=== PATIENT | male | born 1990 | race Hispanic/Latino ===

== ENCOUNTER 2018-06-11 07:30 | Emergency (ER) | payer SELFPAY ==
[2018-06-11] MEDS ORDERED: ONDANSETRON 4 MG/2 ML VIAL ONE (08:08)
[2018-06-11] MEDS ORDERED: MAGNE/ALUM HYDROXD 30 ML UCUP ONE (08:08)
[2018-06-11] MEDS ORDERED: FAMOTIDINE 20 MG/2 ML VIAL IV ONE (08:08)
[2018-06-11] MEDS ORDERED: LIDOCAINE VISCOUS 2% SOLN 15 ML UDC ONE (08:08)
[2018-06-11] MEDS ORDERED: NA CHLORIDE 0.9% 1,000 ML ONE (08:09)
[2018-06-11 08:27] LABS: Absolute Lymphocytes (CBC) 1.5 K/uL (0.7-4.9); Absolute Monocytes 0.7 K/uL (0.1-1.3); Basophils % 0.4 % (0-1.3); Eosinophils % 0.1 % (0-4.4); Hematocrit 42.1 % (39.6-49.0); Lymphocytes % 9.7 % (15.3-44.8); MPV 8.4 fL (7.6-11.3); Monocytes % 4.6 % (3.3-12.3); RBC Red Blood Cell Count 4.74 M/uL (4.33-5.43)
[2018-06-11 08:45] LABS: ALT/SGPT 30 U/L (12-78); AST/SGOT 13 U/L (15-37); Albumin 3.8 g/dL (3.4-5.0); Alkaline Phosphatase 70 U/L (45-117); BUN Blood Urea Nitrogen 13 mg/dL (7-18); Bicarbonate 28 mmol/L (21-32); Bilirubin Direct 0.1 mg/dL (0-0.2); Bilirubin Total 0.4 mg/dL (0.2-1.0); Glucose Level 261 mg/dL (74-106); Lipase 121 U/L (73-393); Potassium 3.9 mmol/L (3.5-5.1); Protein, Total 7.1 g/dL (6.4-8.2); Sodium Level 139 mmol/L (136-145)
[2018-06-11 09:16] LABS: Blood Morphology Comment NOT SEEN (NOT SEEN); Platelet Estimate ADEQ; Urine White Blood Cell Casts OK
--- NOTE | 2018-06-11 09:25 | RAD REPORT ---
EXAM DESCRIPTION: CTAbdomen Pelvis W Contrast - 06/11/2018 9:10 am CLINICAL HISTORY: Abdominal pain. iv contrast only;Abd pain COMPARISON: Abdomen Pelvis W Contrast dated 03/12/2017 TECHNIQUE: Biphasic CT imaging of the abdomen and pelvis was performed with 100 ml non-ionic IV cont rast. All CT scans are performed using dose optimization technique as appropriate and may include automated exposure control or mA/KV adjustment according to patient size. FINDINGS: The lung bases are clear. The liver demonstrates mild fatty infiltration. The spleen, pancreas, adrenal glands and kidneys are within normal limits. No bowel obstruction, free air, free fluid or abscess. The appendix is normal. No evidence of signi ficant lymphadenopathy. No suspicious bony findings. IMPRESSION: No acute intra-abdominal or pelvic finding. Mild fatty liver.
--- NOTE | 2018-06-11 09:30 | EDPHYS ---
Physician Documentation [facility] Name: Ron Felix Age: 27 yrs Sex: Male : 1990 Arrival Date: 06/11/2018 Time: 07:32 Bed 5 Private MD: None, None ED Physician Gilbert Tran HPI: 06/11 08:20 This 27 yrs old Male presents to ER via Ambulatory with complaints of Vomiting.kb 08:20 The patient presents to the emergency department with nausea, vomiting, abdominal pain. kb Onset: The symptoms/episode began/occurred this morning, at 03:00. Possible causes: unknown. The symptoms are aggravated by nothing. The symptoms are alleviated by nothing. Associated signs and symptoms: Pertinent positives: abdominal pain, nausea, vomiting. Severity of symptoms: At their worst the symptoms were moderate in the emergency department the symptoms are unchanged. The patient has experienced a previous episode, approximately 2 months ago. The patient has not recently seen a physician. 08:21 Pt reports he started having left sided abd pain and vomiting at 0300. States the pain kb radiates up esophagus and describes it as burning. Has had this before and told it was an ulcer. Has been on Protonix and zofran. Historical: - Allergies: 07:35 No Known Allergies; aa5 - Home Meds: 07:35 metformin 500 mg Oral Tb24 2 times per day [Active]; aa5 - PMHx: 07:35 PUD; Ulcers; Diabetes - NIDDM; aa5 - PSHx: 07:35 None; aa5 - Immunization history:: Flu vaccine is up to date. - Social history:: Smoking status: Patient/guardian denies using tobacco. - Ebola Screening: : No symptoms or risks identified at this time. ROS: 08:20 Constitutional: Negative for fever, chills, and weight loss, Cardiovascular: Negative kb for chest pain, palpitations, and edema, Respiratory: Negative for shortness of breath, cough, wheezing, and pleuritic chest pain, Back: Negative for injury and pain, : Negative for injury, bleeding, discharge, and swelling, MS/Extremity: Negative for injury and deformity, Skin: Negative for injury, rash, and discoloration, Neuro: Negative for headache, weakness, numbness, tingling, and seizure. 08:20 Abdomen/GI: Positive for abdominal pain, nausea and vomiting, Negative for diarrhea, constipation, abdominal cramps, abdominal distension, anorexia. Exam: 08:18 Constitutional: This is a well developed, well nourished patient who is awake, alert, kb and in no acute distress. Head/Face: Normocephalic, atraumatic. Chest/axilla: Normal chest wall appearance and motion. Nontender with no deformity. No lesions are appreciated. Cardiovascular: Regular rate and rhythm with a normal S1 and S2. No gallops, murmurs, or rubs. Normal PMI, no JVD. No pulse deficits. Respiratory: Lungs have equal breath sounds bilaterally, clear to auscultation and percussion. No rales, rhonchi or wheezes noted. No increased work of breathing, no retractions or nasal flaring. Skin: Warm, dry with normal turgor. Normal color with no rashes, no lesions, and no evidence of cellulitis. MS/ Extremity: Pulses equal, no cyanosis. Neurovascular intact. Full, normal range of motion. Neuro: Awake and alert, GCS 15, oriented to person, place, time, and situation. Cranial nerves II-XII grossly intact. Motor strength 5/5 in all extremities. Sensory grossly intact. Cerebellar exam normal. Normal gait. 08:18 Abdomen/GI: Inspection: abdomen appears normal, Bowel sounds: normal, in all quadrants, Palpation: soft, in all quadrants, mild abdominal tenderness, in the left upper quadrant and left lower quadrant. Vital Signs: 07:36 BP 147 / 80; Pulse 96; Resp 16 S; Temp 97.6(TE); Pulse Ox 100% on R/A; Weight 86.18 kg aa5 (R); Height 5 ft. 10 in. (177.80 cm) (R); Pain 9/10; 08:37 BP 130 / 83; Pulse 82; Resp 17; Pulse Ox 100% on R/A; tw2 09:41 BP 130 / 89; Pulse 84; Resp 17; Pulse Ox 99% on R/A; Pain 6/10; tw2 07:36 Body Mass Index 27.26 (86.18 kg, 177.80 cm) aa5 MDM: 07:37 Patient medically screened. kb 08:18 Data reviewed: vital signs, nurses notes. Data interpreted: Pulse oximetry: on room air kb is 100 %. Interpretation: normal. 09:29 Counseling: I had a detailed discussion with the patient and/or guardian regarding: the kb historical points, exam findings, and any diagnostic results supporting the discharge/admit diagnosis, lab results, radiology results, the need for outpatient follow up, a family practitioner, to return to the emergency department if symptoms worsen or persist or if there are any questions or concerns that arise at home. 06/11 07:38 Order name: Basic Metabolic Panel; Complete Time: 08:50 kb 06/11 07:38 Order name: CBC with Diff; Complete Time: 09:19 kb 06/11 07:38 Order name: Hepatic Function; Complete Time: 08:50 kb 06/11 07:38 Order name: Lipase; Complete Time: 08:50 kb 06/11 08:31 Order name: CBC Smear Scan; Complete Time: 09:19 EDMS 06/11 08:51 Order name: CT Abd/Pelvis - W/Contrast; Complete Time: 09:29 kb 06/11 07:38 Order name: IV Saline Lock; Complete Time: 07:54 kb 06/11 07:38 Order name: Labs collected and sent; Complete Time: 07:54 kb 06/11 08:06 Order name: Labs - recollect needed; Complete Time: 08:17 bd Administered Medications: 07:58 Drug: Zofran 4 mg Route: IVP; Site: right antecubital; tw2 09:40 Follow up: Response: No adverse reaction tw2 08:00 Drug: Pepcid 20 mg Route: IVP; Site: right antecubital; tw2 09:40 Follow up: Response: No adverse reaction tw2 08:04 Drug: NS 0.9% 1000 ml Route: IV; Rate: 1000 ml; Site: right antecubital; tw2 09:41 Follow up: Response: No adverse reaction; IV Status: Completed infusion; IV Intake: tw2 1000ml 08:04 Drug: GI Cocktail without - (Maalox Suspension 30 ml, Lidocaine Liquid 2 % 15 tw2 ml) Route: PO; 09:40 Follow up: Response: No adverse reaction tw2 Disposition: 06/11/18 09:29 Discharged to Home. Impression: Upper abdominal pain, unspecified. - Condition is Stable. - Discharge Instructions: Abdominal Pain, Adult, [id number]. - Prescriptions for Bentyl 20 mg Oral Tablet - take 1 tablet by ORAL route every 6 hours As needed; 20 tablet. - Medication Reconciliation Form, Thank You Letter, Antibiotic Education, Prescription Opioid Use, Work release form form. - Follow up: Emergency Department; When: As needed; Reason: Worsening of condition. Follow up: Private Physician; When: 2 - 3 days; Reason: Recheck today's complaints, Continuance of care, Re-evaluation by your physician. Addendum: 06/12/2018 12:06 Co-signature as Attending Physician, Gilbert Tran MD I agree with the assessment and c valencia plan of care. Signatures: Dispatcher [employer] EDMS Monica Mckeon, ACADEMIC SUCCESS COORDINATOR-C ACADEMIC SUCCESS COORDINATOR-Ckb Alexia Ricardo Corey, MD MD cha Calderon, Audri, RN RN aa5 Stella George RN RN tw2 Corrections: (The following items were deleted from the chart) 06/11 09:42 09:29 06/11/2018 09:29 Discharged to Home. Impression: Upper abdominal pain, tw2 unspecified. Condition is Stable. Forms are Medication Reconciliation Form, Thank You Letter, Antibiotic Education, Prescription Opioid Use. Follow up: Emergency Department; When: As needed; Reason: Worsening of condition. Follow up: Private Physician; When: 2 - 3 days; Reason: Recheck today's complaints, Continuance of care, Re-evaluation by your physician. kb
--- NOTE | 2018-06-11 09:30 | ER ---
Nurse's Notes [facility] Name: Ron Felix Age: 27 yrs Sex: Male : 1990 Arrival Date: 06/11/2018 Time: 07:32 Bed 5 Private MD: None, None Diagnosis: Upper abdominal pain, unspecified Presentation: 06/11 07:34 Presenting complaint: Patient states: nausea and vomiting that began at 0300. Pt c/o aa5 abd pain described as burning. Transition of care: patient was not received from another setting of care. Onset of symptoms was May 2018. Risk Assessment: Do you want to hurt yourself or someone else? Patient reports no desire to harm self or others. Initial Sepsis Screen: Does the patient meet any 2 criteria? No. Patient's initial sepsis screen is negative. Does the patient have a suspected source of infection? No. Patient's initial sepsis screen is negative. Care prior to arrival: None. 07:34 Method Of Arrival: Ambulatory aa5 07:34 Acuity: JOSE 3 aa5 Triage Assessment: 07:37 General: Appears in no apparent distress. Behavior is calm, cooperative, appropriate tw2 for age. Pain: Complains of pain in abdomen. GI: Reports lower abdominal pain, upper abdominal pain, vomiting. Historical: - Allergies: 07:35 No Known Allergies; aa5 - Home Meds: 07:35 metformin 500 mg Oral Tb24 2 times per day [Active]; aa5 - PMHx: 07:35 PUD; Ulcers; Diabetes - NIDDM; aa5 - PSHx: 07:35 None; aa5 - Immunization history:: Flu vaccine is up to date. - Social history:: Smoking status: Patient/guardian denies using tobacco. - Ebola Screening: : No symptoms or risks identified at this time. Screenin:37 Abuse screen: Denies threats or abuse. Nutritional screening: No deficits noted. tw2 Tuberculosis screening: No symptoms or risk factors identified. Fall Risk None identified. Assessment: 07:44 General: Appears in no apparent distress. Behavior is calm, cooperative, appropriate tw2 for age. Pain: Complains of pain in abdomen. Neuro: Level of Consciousness is awake, alert, obeys commands, Oriented to person, place, time, situation. Cardiovascular: Heart tones S1 S2 Patient's skin is warm and dry. Respiratory: Airway is patent Respiratory effort is even, unlabored, Respiratory pattern is regular, symmetrical, Breath sounds are clear bilaterally. GI: Abdomen is flat, non-distended, Bowel sounds present X 4 quads. Abd is soft X 4 quads Reports vomiting, "then after i vomit it hopper", "i ate something i wasn't supposed to". : No signs and/or symptoms were reported regarding the genitourinary system. EENT: No signs and/or symptoms were reported regarding the EENT system. Derm: No signs and/or symptoms reported regarding the dermatologic system. Musculoskeletal: Circulation, motion, and sensation intact. Range of motion: intact in all extremities. 08:38 Reassessment: Patient appears in no apparent distress at this time. Patient and/or tw2 family updated on plan of care and expected duration. Pain level reassessed. Patient is alert, oriented x 3, equal unlabored respirations, skin warm/dry/pink. Patient states feeling better. 09:41 Reassessment: Patient appears in no apparent distress at this time. Patient and/or tw2 family updated on plan of care and expected duration. Pain level reassessed. Patient is alert, oriented x 3, equal unlabored respirations, skin warm/dry/pink. Patient states feeling better. Patient states symptoms have improved. Vital Signs: 07:36 BP 147 / 80; Pulse 96; Resp 16 S; Temp 97.6(TE); Pulse Ox 100% on R/A; Weight 86.18 kg aa5 (R); Height 5 ft. 10 in. (177.80 cm) (R); Pain 9/10; 08:37 BP 130 / 83; Pulse 82; Resp 17; Pulse Ox 100% on R/A; tw2 09:41 BP 130 / 89; Pulse 84; Resp 17; Pulse Ox 99% on R/A; Pain 6/10; tw2 07:36 Body Mass Index 27.26 (86.18 kg, 177.80 cm) aa5 ED Course: 07:32 Patient arrived in ED. as 07:32 None, None is Private Physician. as 07:34 Arm band placed on. aa5 07:35 Triage completed. aa5 07:36 Monica Mckeon FNP-C [facility] kb 07:36 Gilbert Tran MD is Attending Physician. kb 07:36 Stella George, RN is Primary Nurse. tw2 07:37 Bed in low position. Call light in reach. Pulse ox on. NIBP on. tw2 07:53 Initial lab(s) drawn, by me, sent to lab. Inserted saline lock: 20 gauge in right kj1 antecubital area, using aseptic technique. 09:02 CT completed. Patient tolerated procedure well. Patient moved to CT via wheelchair. Patient moved back from CT. 09:10 CT Abd/Pelvis - W/Contrast In Process Unspecified. EDMS 09:41 No provider procedures requiring assistance completed. IV discontinued, intact, tw2 bleeding controlled, No redness/swelling at site. Pressure dressing applied. Administered Medications: 07:58 Drug: Zofran 4 mg Route: IVP; Site: right antecubital; tw2 09:40 Follow up: Response: No adverse reaction tw2 08:00 Drug: Pepcid 20 mg Route: IVP; Site: right antecubital; tw2 09:40 Follow up: Response: No adverse reaction tw2 08:04 Drug: NS 0.9% 1000 ml Route: IV; Rate: 1000 ml; Site: right antecubital; tw2 09:41 Follow up: Response: No adverse reaction; IV Status: Completed infusion; IV Intake: tw2 1000ml 08:04 Drug: GI Cocktail without - (Maalox Suspension 30 ml, Lidocaine Liquid 2 % 15 tw2 ml) Route: PO; 09:40 Follow up: Response: No adverse reaction tw2 Intake: 09:41 IV: 1000ml; Total: 1000ml. tw2 Outcome: 09:29 Discharge ordered by . kb 09:41 Discharged to home ambulatory. tw2 09:41 Condition: stable 09:41 Discharge instructions given to patient, Instructed on discharge instructions, follow up and referral plans. medication usage, Demonstrated understanding of instructions, follow-up care, medications, Prescriptions given X 1. 09:42 Patient left the ED. tw2 Signatures: Dispatcher [employer] EDMS Monica Mckeon, LUDY HUFF-Radha Medrano Amelia as Calderon, Audri, RN RN aa5 Stella George RN RN tw2 Nelsy Mckeon kj1
[2018-06-11 09:49] VITALS: TEMP 97.6
[2018-06-11 09:51] VITALS: BP 130/89; O2SAT 99
== END 2018-06-11 09:42 | disposition home or self-care (01) ==
LOC: ER 07:30
DX: R10.10 Upper abdominal pain, unspecified (principal); R11.2 Nausea with vomiting, unspecified; E11.9 Type 2 diabetes mellitus without complications; Z79.84 Long term (current) use of oral hypoglycemic drugs
CPT/HCPCS: 36415; 74177; 80048; 80076; 83690; 85025; 96361; 96374; 96375; 99284; J2405; J7030; Q9967

== ENCOUNTER 2019-07-29 04:57 | Emergency (ER) | payer SELFPAY ==
--- OUTSIDE RECORDS SUMMARY | 2019-07-29 04:59 | XMS REPORT | Continuity of Care Document ---
:1990 Author Organization [facility] t Address [address] [place] [address] Care Team Providers Name Role Phone Luli MASSEY, A Attending Clinician Problems This patient has no known problems. Allergies, Adverse Reactions, Alerts This patient has no known allergies or adverse reactions. Medications This patient has no known medications. Procedures This patient has no known procedures. Encounters Start End Encounter Admission Attending Care Care Encounter Source Date/Time Date/Time Type Type Clinicians Facility Department ID 2019-04-09 2019-04-09 Emergency Luli, TRAUMA [id number] 15:11:00 22:26:[facility] [id number] Results Test Description Test Time Test Comments Results Result [facility] e Comments CT Abdomen and 2018-06-29 Patient: JAILEEN Pelvis w/ Contrast 02:28:18 CANDACE DESAI Date/Time06/29/2018 02:19 CDTReason for ExamAbdominal painReportAFTER HOURS SERVICE ON: 06/29/2018 2:26 AMCT Scan of the Abdomen and Pelvis With ContrastLocation Code [id number]: Abdominal painTechnique: Axial and reconstructed coronal scans were performed on a helical scanner post IV contrast.One or more of the following dose reduction techniques were used: Automated exposure control, adjustment of the mA and/or kV according to patient size, and/or utilization of iterative reconstruction technique.Findings:Chandrika er is hypodense and enlarged measuring 18.7 cm, consistent with steatosis. Spleen is unremarkable. Gallbladder and pancreas are within normal limits.Kidneys and adrenal glands are symmetric. There is no hydronephrosis. Bladder is within normal limits. There is no pelvic free fluid.The appendix, small bowel colon are unremarkable. There is no appendicitis. There is no bowel structure or free air.Impression:No acute findings in the abdomen or pelvis.Hepatic steatosis and hepatomegaly. Final Dictated by: MD Navarrete Mohammad TDictated DT/TM: 06/29/2018 2:26 amSigned by: MD Navarrete Mohammad TSigned (Electronic Signature): 06/29/2018 2:28 am
[2019-07-29] MEDS ORDERED: ONDANSETRON 4 MG/2 ML VIAL ONE (05:22)
[2019-07-29] MEDS ORDERED: NA CHLORIDE 0.9% 1,000 ML ONE (05:23)
[2019-07-29] MEDS ORDERED: MORPHINE 4 MG/ML SYR ONE (05:33)
[2019-07-29] MEDS ORDERED: FAMOTIDINE 20 MG/2 ML VIAL IV ONE (05:33)
[2019-07-29 05:44] LABS: Absolute Lymphocytes (CBC) 4.6 K/uL (0.7-4.9); Basophils % 0.7 % (0-1.3); Hematocrit 49.4 % (39.6-49.0); Lymphocytes % 35.5 % (15.3-44.8); MPV 9.3 fL (7.6-11.3); RBC Red Blood Cell Count 5.52 M/uL (4.33-5.43)
[2019-07-29 06:03] LABS: Albumin 4.6 g/dL (3.4-5.0); Bilirubin Direct 0.3 mg/dL (0-0.2); Bilirubin Total 1.6 mg/dL (0.2-1.0); Potassium 3.4 mmol/L (3.5-5.1); Protein, Total 8.5 g/dL (6.4-8.2)
--- NOTE | 2019-07-29 07:09 | ER ---
Nurse's Notes [facility] Name: Ron Felix Age: 29 yrs Sex: Male : 1990 Arrival Date: 07/29/2019 Time: 04:59 Bed 8 Private MD: Diagnosis: Unspecified abdominal pain;Vomiting Presentation: 07/28 05:07 Chief complaint: Patient states: vomiting that's started Sunday. Pt C/O of abdominal wh pain only when vomiting. Pt states Hx of ulcer. Coronavirus screen: Proceed with normal triage. Patient denies a cough. Patient denies shortness of breath or difficulty breathing. Patient denies measured and/or subjective temperature greater than 100.4F prior to today's visit. Patient denies travel on a cruise ship or to a country the [facility] currently lists as an affected area. Patient denies contact with known and/or suspected case of COVID-19. Ebola Screen: Patient negative for fever greater than or equal to 101.5 degrees Fahrenheit, and additional compatible Ebola Virus Disease symptoms Patient denies exposure to infectious person. Initial Sepsis Screen: Does the patient meet any 2 criteria? HR > 90 bpm. Does the patient have a suspected source of infection? Yes: Acute abdominal pain. Risk Assessment: Do you want to hurt yourself or someone else? Patient reports no desire to harm self or others. Onset of symptoms was July 29, 2019. 05:07 Method Of Arrival: Ambulatory 05:07 Acuity: JOSE 3 Historical: - Allergies: 05:10 No Known Allergies; - Home Meds: 05:10 metformin 500 mg Oral Tb24 1 tab once daily [Active]; - PMHx: 05:10 Diabetes - NIDDM; PUD; Ulcers; - PSHx: 05:10 None; - Immunization history:: Adult Immunizations up to date. - Social history:: Smoking status: Patient reports the use of cigarette tobacco products, Patient uses street drugs, marijuana. Screenin:10 Abuse screen: Denies threats or abuse. Denies injuries from another. Nutritional screening: No deficits noted. Tuberculosis screening: No symptoms or risk factors identified. Fall Risk None identified. Assessment: 05:11 General: Appears in no apparent distress. Behavior is calm, cooperative, appropriate for age. Pain: Denies pain. Neuro: Level of Consciousness is awake, alert, obeys commands, Oriented to person, place, time, situation, Appropriate for age. Cardiovascular: Heart tones S1 S2. Respiratory: Airway is patent Respiratory effort is even, unlabored, Respiratory pattern is regular, symmetrical, Breath sounds are clear bilaterally. GI: Abdomen is flat, non-distended, Bowel sounds present X 4 quads. Abd is soft and non tender X 4 quads. Reports nausea, vomiting. : No signs and/or symptoms were reported regarding the genitourinary system. EENT: No signs and/or symptoms were reported regarding the EENT system. Derm: Skin is intact, is healthy with good turgor, Skin is pink, warm \T\ dry. normal. Musculoskeletal: Circulation, motion, and sensation intact. 06:00 Reassessment: Patient and/or family updated on plan of care and expected duration. Pain ea level reassessed. Patient is alert, oriented x 3, equal unlabored respirations, skin warm/dry/pink. 07:00 Reassessment: RECD REPORT FROM DIANE BELTRAN. 29YO HM P/W NAUSEA AND VOMITING. ALL CURRENT bp ORDERS COMPLETE, DISPO PENDING. 07:34 Reassessment: PT D/C HOME AMBULATORY, DX WITH UNSPECIFIED ABDOMINAL PAIN. bp Vital Signs: 05:07 BP 156 / 107; Pulse 111; Resp 18; Temp 97.5; Pulse Ox 99% ; Weight 81.65 kg; Height 5 wh ft. (152.40 cm); 06:29 BP 136 / 87; Pulse 96; Resp 18; Pulse Ox 100% ; ea 07:10 BP 123 / 86; Pulse 86; Resp 17; Temp 97.8; Pulse Ox 99% ; bp 05:07 Body Mass Index 35.15 (81.65 kg, 152.40 cm) ED Course: 04:59 Patient arrived in ED. ds1 05:10 Triage completed. 05:11 Arm band placed on right wrist. 05:12 Quoc Storey MD is Attending Physician. 7 05:12 Geovanny Ramírez is Primary Nurse. 05:12 Patient has correct armband on for positive identification. Bed in low position. Call light in reach. Side rails up X 1. Pulse ox on. NIBP on. 05:13 Inserted saline lock: 20 gauge in right antecubital area, using aseptic technique. Blood collected. 05:46 EKG done, by ED staff, reviewed by Quoc Storey MD. ds4 06:38 CT Abd/Pelvis - IV Contrast Only In Process Unspecified. EDMS 07:06 UDS Sent. ds4 07:07 Nabil Suh MD is Referral Physician. [facility] 07:34 No provider procedures requiring assistance completed. IV discontinued, intact, bp bleeding controlled, No redness/swelling at site. Pressure dressing applied. Administered Medications: 05:13 Drug: Zofran (Ondansetron) 4 mg Route: IVP; Site: right antecubital; ea 06:33 Follow up: Response: No adverse reaction; Nausea is decreased ea 05:23 Drug: NS 0.9% 1000 ml Route: IV; Rate: 1000 ml; Site: right antecubital; ea 06:30 Follow up: Response: No adverse reaction; IV Status: Completed infusion; IV Intake: ea 1000ml 05:30 Drug: morphine 4 mg {Note: RASS 0 .} Route: IVP; Site: right antecubital; ea 06:32 Follow up: Response: No adverse reaction; Pain is decreased ea 05:33 Drug: Pepcid 20 mg Route: IVP; Site: right antecubital; ea 06:31 Follow up: Response: No adverse reaction ea Intake: 06:30 IV: 1000ml; Total: 1000ml. ea Outcome: 07:08 Discharge ordered by . 7 07:34 Discharged to home ambulatory. bp 07:34 Condition: stable 07:34 Discharge instructions given to patient, Instructed on discharge instructions, follow up and referral plans. medication usage, Demonstrated understanding of instructions, follow-up care, medications, Prescriptions given X 3. 07:35 Patient left the ED. bp Signatures: Dispatcher [employer] EDCT BabcockMelissa martinez ds1 Rober Villeda ds4 Diane Pinedo, Geovanny Carrillo RN, ea Fabian Mckoy RN RN bp Holmes, Maurice, MD MD 7 Corrections: (The following items were deleted from the chart) 05:19 05:10 Social history: Smoking status: Patient reports the use of cigarette tobacco products,
--- NOTE | 2019-07-29 07:09 | EDPHYS ---
Physician Documentation [facility] Name: Ron Felix Age: 29 yrs Sex: Male : 1990 Arrival Date: 07/29/2019 Time: 04:59 Bed 8 Private MD: ED Physician Quoc Storey HPI: 07/28 05:25 This 29 yrs old Male presents to ER via Ambulatory with complaints of mh7 Nausea/Vomiting. 05:25 The patient presents to the emergency department with nausea, that is moderate, mh7 vomiting, that is intermittent, described as unknown, abdominal pain, of the umbilical area and left lower quadrant. Onset: The symptoms/episode began/occurred 3 day(s) ago. Possible causes: unknown. The symptoms are aggravated by food , The symptoms are alleviated by nothing. Associated signs and symptoms: Pertinent negatives: belching, constipation, diarrhea, dysuria, fever, flatulence, GI bleeding, hematuria. Severity of symptoms: At their worst the symptoms were moderate yesterday, in the emergency department the symptoms are unchanged. Historical: - Allergies: 05:10 No Known Allergies; - Home Meds: 05:10 metformin 500 mg Oral Tb24 1 tab once daily [Active]; - PMHx: 05:10 Diabetes - NIDDM; PUD; Ulcers; [facility] PSHx: 05:10 None; - Immunization history:: Adult Immunizations up to date. - Social history:: Smoking status: Patient reports the use of cigarette tobacco products, Patient uses street drugs, marijuana. ROS: 05:25 Constitutional: Negative for fever, chills, and weight loss, Eyes: Negative for injury, mh7 pain, redness, and discharge, ENT: Negative for injury, pain, and discharge, Neck: Negative for injury, pain, and swelling, Cardiovascular: Negative for chest pain, palpitations, and edema, Respiratory: Negative for shortness of breath, cough, wheezing, and pleuritic chest pain, Back: Negative for injury and pain, : Negative for injury, bleeding, discharge, and swelling, MS/Extremity: Negative for injury and deformity, Skin: Negative for injury, rash, and discoloration, Neuro: Negative for headache, weakness, numbness, tingling, and seizure, Psych: Negative for depression, anxiety, suicide ideation, homicidal ideation, and hallucinations, Allergy/Immunology: Negative for hives, rash, and allergies, Endocrine: Negative for neck swelling, polydipsia, polyuria, polyphagia, and marked weight changes, Hematologic/Lymphatic: Negative for swollen nodes, abnormal bleeding, and unusual bruising. Exam: 05:25 Constitutional: This is a well developed, well nourished patient who is awake, alert, mh7 and in no acute distress. Head/Face: Normocephalic, atraumatic. Eyes: Pupils equal round and reactive to light, extra-ocular motions intact. Lids and lashes normal. Conjunctiva and sclera are non-icteric and not injected. Cornea within normal limits. Periorbital areas with no swelling, redness, or edema. Neck: Trachea midline, no thyromegaly or masses palpated, and no cervical lymphadenopathy. Supple, full range of motion without nuchal rigidity, or vertebral point tenderness. No Meningismus. Chest/axilla: Normal chest wall appearance and motion. Nontender with no deformity. No lesions are appreciated. Cardiovascular: Regular rate and rhythm with a normal S1 and S2. No gallops, murmurs, or rubs. Normal PMI, no JVD. No pulse deficits. Respiratory: Lungs have equal breath sounds bilaterally, clear to auscultation and percussion. No rales, rhonchi or wheezes noted. No increased work of breathing, no retractions or nasal flaring. 05:25 Back: No spinal tenderness. No costovertebral tenderness. Full range of motion. Skin: Warm, dry with normal turgor. Normal color with no rashes, no lesions, and no evidence of cellulitis. MS/ Extremity: Pulses equal, no cyanosis. Neurovascular intact. Full, normal range of motion. Neuro: Awake and alert, GCS 15, oriented to person, place, time, and situation. Cranial nerves II-XII grossly intact. Motor strength 5/5 in all extremities. Sensory grossly intact. Cerebellar exam normal. Normal gait. 05:25 Abdomen/GI: Inspection: abdomen appears normal, Bowel sounds: normal, in all quadrants, Palpation: moderate abdominal tenderness, in the left lower quadrant, Rectal exam: the exam is deferred, because of patient request, Indicators: McBurney's point is not tender, Bentley's sign is negative, Rovsing's sign is negative, Obturator sign is negative, Psoas sign is negative, Liver: no appreciated palpable abnormalities, Hernia: not appreciated. 05:47 ECG was reviewed by the Attending Physician. [facility] Vital Signs: 05:07 BP 156 / 107; Pulse 111; Resp 18; Temp 97.5; Pulse Ox 99% ; Weight 81.65 kg; Height 5 wh ft. (152.40 cm); 06:29 BP 136 / 87; Pulse 96; Resp 18; Pulse Ox 100% ; ea 07:10 BP 123 / 86; Pulse 86; Resp 17; Temp 97.8; Pulse Ox 99% ; bp 05:07 Body Mass Index 35.15 (81.65 kg, 152.40 cm) wh MDM: 05:19 Patient medically screened. [facility] 07:04 Differential diagnosis: Nonspecific abd pain, gastritis, cholecystitis, pancreatitis, [facility] appendicitis, diverticulitis, viral gastroenteritis, gastroenteritis. Data reviewed: vital signs, nurses notes, old medical records, lab test result(s), CBC, electrolytes, hepatic panel, urinalysis. Data interpreted: Pulse oximetry: on room air is 100 %. Interpretation: normal. Counseling: I had a detailed discussion with the patient and/or guardian regarding: the historical points, exam findings, and any diagnostic results supporting the discharge/admit diagnosis, the presence of at least one elevated blood pressure reading (>120/80) during this emergency department visit, lab results, radiology results, the need for outpatient follow up, to return to the emergency department if symptoms worsen or persist or if there are any questions or concerns that arise at home. Response to treatment: the patient's symptoms have resolved after treatment, the patient's blood pressure is in an acceptable range, mental status has returned to baseline, the patient no longer shows bradycardia, the patient is not short of breath, the patient is not tachycardic, the patient's pain is gone, the patient's temperature has normalized. 07/28 05:13 Order name: Basic Metabolic Panel; Complete Time: 06: wh 07/28 05:13 Order name: CBC with Diff; Complete Time: 05:53 07/28 05:13 Order name: Hepatic Function; Complete Time: 06: 07/28 05:13 Order name: Lipase; Complete Time: 06: 07/28 05:21 Order name: UDS mh7 07/28 07:07 Order name: Urine Dipstick--Ancillary (enter results) 4 07/28 05:13 Order name: IV Saline Lock; Complete Time: 05:13 07/28 05:13 Order name: Labs collected and sent; Complete Time: 05:13 07/28 05:21 Order name: Urine Dipstick-Ancillary (obtain specimen); Complete Time: 07:04 [facility] 07/28 05:24 Order name: CT Abd/Pelvis - IV Contrast Only [facility] 07/28 05:21 Order name: EKG - Nurse/Tech; Complete Time: 05:47 mh7 EC:47 Rate is 91 beats/min. Rhythm is regular, Normal Sinus Rhythm. QRS [place] is Normal. [place] mh7 interval is normal. QRS interval is normal. QT interval is normal. No Q waves. T waves are Normal. No ST changes noted. Clinical impression: Normal ECG. Administered Medications: 05:13 Drug: Zofran (Ondansetron) 4 mg Route: IVP; Site: right antecubital; ea 06:33 Follow up: Response: No adverse reaction; Nausea is decreased ea 05:23 Drug: NS 0.9% 1000 ml Route: IV; Rate: 1000 ml; Site: right antecubital; ea 06:30 Follow up: Response: No adverse reaction; IV Status: Completed infusion; IV Intake: ea 1000ml 05:30 Drug: morphine 4 mg {Note: RASS 0 .} Route: IVP; Site: right antecubital; ea 06:32 Follow up: Response: No adverse reaction; Pain is decreased ea 05:33 Drug: Pepcid 20 mg Route: IVP; Site: right antecubital; ea 06:31 Follow up: Response: No adverse reaction ea Disposition: 07/29/19 07:08 Discharged to Home. Impression: Unspecified abdominal pain, Vomiting. - Condition is Stable. - Discharge Instructions: Nausea and Vomiting, Adult, Abdominal Pain, Adult, [id number]. - Prescriptions for Zofran ODT 4 mg Oral tablet,disintegrating - place 1 tablet by TRANSLINGUAL route every 8 hours As needed; 10 tablet. Bentyl 20 mg Oral Tablet - take 1 tablet by ORAL route every 6 hours As needed; 20 tablet. Pepcid 20 mg Oral Tablet - take 1 tablet by ORAL route every 12 hours for 5 days; 10 tablet. - Medication Reconciliation Form, Thank You Letter, Antibiotic Education, Prescription Opioid Use form. - Follow up: Private Physician; When: 1 - 2 days; Reason: Worsening of condition, Recheck today's complaints, Re-evaluation by your physician. Follow up: Nabil Suh MD; When: 1 - 2 days; Reason: Worsening of condition, Recheck today's complaints. - Problem is an acute exacerbation. - Symptoms have improved. Signatures: Dispatcher [employer] [facility] Diane Pinedo, Geovanny Carrillo RN, ea, Brian, RN RN bp Holmes, Maurice, MD MD mh7 Corrections: (The following items were deleted from the chart) 05:19 05:10 Social history: Smoking status: Patient reports the use of cigarette tobacco wh products, 07:35 07:08 07/29/2019 07:08 Discharged to Home. Impression: Unspecified abdominal pain; bp Vomiting. Condition is Stable. Forms are Medication Reconciliation Form, Thank You Letter, Antibiotic Education, Prescription Opioid Use. Follow up: Private Physician; When: 1 - 2 days; Reason: Worsening of condition, Recheck today's complaints, Re-evaluation by your physician. Follow up: Nabil Suh; When: 1 - 2 days; Reason: Worsening of condition, Recheck today's complaints. Problem is an acute exacerbation. Symptoms have improved. mh7
[2019-07-29 07:30] LABS: Barbiturates NEGATIVE (NEGATIVE); Benzodiazepines NEGATIVE (NEGATIVE); Cocaine NEGATIVE (NEGATIVE); METHAMPHETAM NEGATIVE (NEGATIVE); Methadone NEGATIVE (NEGATIVE); Opiates POSITIVE (NEGATIVE); Phencyclidine NEGATIVE (NEGATIVE); THC Cannibis POSITIVE (NEGATIVE)
[2019-07-29 07:46] VITALS: BP 123/86; TEMP 97.8; O2SAT 99
[2019-07-29 07:46] LABS: Urine Blood NEGATIVE (NEG); Urine Glucose TRACE (NEG); Urine Protein NEGATIVE (NEG); Urine pH 5.5 (5.0-7.0)
--- NOTE | 2019-07-29 11:44 | EKG ---
Test Date: 2019-07-29 Test Time: 05:41:07 Film Maker: DEEPA MEASUREMENT RESULTS: Intervals: Rate: 91 WY: 116 QRSD: 88 QT: 364 QTc: 447 Kittrell: P: 38 WY: 116 QRS: 89 T: 62 INTERPRETIVE STATEMENTS: Normal sinus rhythm Normal ECG No previous ECG available for comparison Electronically Signed On 07-29-19 11:43:04 CDT by Dandre Knight
--- NOTE | 2019-07-29 15:48 | RAD REPORT ---
EXAM DESCRIPTION: CT - Abdomen Pelvis W Contrast - 07/29/2019 6:52 am CLINICAL HISTORY: ABD PAIN COMPARISON: 06/11/2018 TECHNIQUE: CT of the abdomen and pelvis performed following IV administration of iodinated contrast. FINDINGS: Lung Bases: The visualized lung bases are clear. Bones: No destructive bone lesions identified. Abdomen: Liver: The liver has normal size and decreased density. No intrahepatic biliary dilatation. Gallbladder: No calcified gallstones. Spleen, Pancreas, and Adrenal Glands: The spleen, pancreas, and adrenal glands are unremarkable. Kidneys: No hydronephrosis or obstructing calculus. Vasculature: Aortoiliac atherosclerosis. IVC is unremarkable. The portal vein is patent. The proxim al visceral and renal arteries are patent. Stomach: The stomach and duodenum have normal course. Other: No free intraperitoneal air. No free fluid or lymphadenopathy. Pelvis: Bladder: Urinary bladder is unremarkable. Bowel: No dilated loops of large or small bowel. Appendix: Normal appendix. Pelvis: Prostate is not enlarged. IMPRESSION: 1. No acute inflammatory or obstructive process identified. 2. Hepatic steatosis. This exam was performed according to our departmental dose-optimization program, which includes autom ated exposure control, adjustment of the mA and/or kV according to patient size and/or use of iterati ve reconstruction technique. Electronically signed by: Davion Motta 07/29/2019 6:44 AM CDT Due to temporary technical issues with the PACS/Fluency reporting system, reports are being signed by the in house radiologist without review as a courtesy to ensure prompt reporting. The interpreting r adiologist is fully responsible for the content of the report.
== END 2019-07-29 07:35 | disposition home or self-care (01) ==
LOC: ER 04:57
DX: R10.9 Unspecified abdominal pain (principal); E11.9 Type 2 diabetes mellitus without complications; F17.210 Nicotine dependence, cigarettes, uncomplicated
CPT/HCPCS: 36415; 74177; 80048; 80076; 80307; 81003; 83690; 85025; 93005; 96361; 96374; 96375; 99284; J2405; J7030; Q9967

== ENCOUNTER 2019-07-29 19:37 | Emergency (ER) | payer SELFPAY ==
--- OUTSIDE RECORDS SUMMARY | 2019-07-29 20:18 | XMS REPORT | Continuity of Care Document ---
:1990 Author Organization [facility] t Address [address] [place] [address] Care Team Providers Name Role Phone Luli [...] 2019-04-09 2019-04-09 Emergency Luli, TRAUMA [id number] 15:11:00 22:26:00 [facility] [id number] Results Test Description Test Time Test Comments Results Result [facility] e Comments CT Abdomen and 2018-06-29 Patient: JAILENE Pelvis w/ Contrast 02:28:18 CANDACE DESAI Date/Time06/29/2018 02:19 CDTReason for ExamAbdominal painReportAFTER HOURS SERVICE ON: 06/29/2018 2:26 AMCT Scan of the Abdomen and Pelvis With ContrastLocation Code [id number]: Abdominal painTechnique: Axial and reconstructed coronal scans [...]
[2019-07-29] MEDS ORDERED: PROMETHAZINE INJ 25 MG/ML AMP ONE (20:36)
[2019-07-29] MEDS ORDERED: NA CHLORIDE 0.9% 1,000 ML ONE (20:36)
--- NOTE | 2019-07-29 22:39 | EDPHYS ---
Physician Documentation [facility] Name: Ron Felix Age: 29 yrs Sex: Male : 1990 Arrival Date: 07/29/2019 Time: 19:40 Bed 14 Private MD: ED Physician Quoc Storey HPI: 07/28 20:15 This 29 yrs old Male presents to ER via Ambulatory with complaints of Vomiting.pm1 20:15 The patient presents to the emergency department with vomiting, 5 times since discharge pm1 from the ER today, food or liquid that he just consumed. Reports IV zofran worked well for him in the ER but the ODT zofran does not feel effective. Onset: The symptoms/episode began/occurred 3 day(s) ago. Possible causes: patient attributes to bad food exposure and possibly to cannabis use. The symptoms are aggravated by food , The symptoms are alleviated by nothing. Associated signs and symptoms: Pertinent negatives: diarrhea, dysuria, fever, Abdominal pain has resolved. The patient has been recently seen at the [facility] Emergency Department, today, for similar complaints labs were performed, CT scan was performed, was given a prescription for an antiemetic. Historical: - Allergies: 19:52 No Known Allergies; rr5 - Home Meds: 19:52 metformin 500 mg Oral Tb24 1 tab once daily [Active]; rr5 - PMHx: 19:52 Diabetes - NIDDM; PUD; Ulcers; rr5 - PSHx: 19:52 None; rr5 - Immunization history:: Adult Immunizations up to date. - Social history:: Smoking status: unknown Patient uses street drugs, marijuana, Patient/guardian denies using alcohol. ROS: 20:15 Constitutional: Negative for fever, chills, and weight loss, Cardiovascular: Negative pm1 for chest pain, palpitations, and edema, Respiratory: Negative for shortness of breath, cough, wheezing, and pleuritic chest pain. 20:15 Back: Negative for injury and pain, : Negative for injury, bleeding, discharge, and swelling, MS/Extremity: Negative for injury and deformity, Skin: Negative for injury, rash, and discoloration, Neuro: Negative for headache, weakness, numbness, tingling, and seizure. 20:15 Abdomen/GI: Positive for nausea and vomiting, Negative for abdominal pain, diarrhea, constipation. Exam: 20:15 Constitutional: This is a well developed, well nourished patient who is awake, alert, pm1 and in no acute distress. Head/Face: Normocephalic, atraumatic. Neck: Trachea midline, no thyromegaly or masses palpated, and no cervical lymphadenopathy. Supple, full range of motion without nuchal rigidity, or vertebral point tenderness. No Meningismus. Chest/axilla: Normal chest wall appearance and motion. Nontender with no deformity. No lesions are appreciated. 20:15 Back: No spinal tenderness. No costovertebral tenderness. Full range of motion. Skin: Warm, dry with normal turgor. Normal color with no rashes, no lesions, and no evidence of cellulitis. MS/ Extremity: Pulses equal, no cyanosis. Neurovascular intact. Full, normal range of motion. 20:15 Cardiovascular: Exam negative for acute changes, Rate: normal, Rhythm: regular, Pulses: no pulse deficits are appreciated. 20:15 Respiratory: Exam negative for acute changes, respiratory distress, shortness of breath. 20:15 Abdomen/GI: Inspection: abdomen appears normal, Bowel sounds: normal, Palpation: abdomen is soft and non-tender, in all quadrants, mass, is not appreciated, rebound tenderness, is not appreciated. 20:15 Neuro: Exam negative for acute changes, Orientation: is normal, Mentation: is normal, Motor: is normal, moves all fours. Vital Signs: 19:45 BP 148 / 96; Pulse 93; Resp 19; Temp 98.5; Pulse Ox 100% ; Weight 81.65 kg; Height 5 rr5 ft. 10 in. (177.80 cm); Pain 8/10; 22:00 BP 115 / 79; Pulse 82; Resp 19; Pulse Ox 100% ; rr5 22:40 BP 105 / 78; Pulse 75; Resp 16; Pulse Ox 99% on R/A; rr5 19:45 Body Mass Index 25.83 (81.65 kg, 177.80 cm) rr5 MDM: 20:15 Patient medically screened. pm1 22:37 Data reviewed: vital signs. Data interpreted: Pulse oximetry: on room air is 100 %. pm1 Interpretation: normal. Counseling: I had a detailed discussion with the patient and/or guardian regarding: the historical points, exam findings, and any diagnostic results supporting the discharge/admit diagnosis, the need for outpatient follow up, to return to the emergency department if symptoms worsen or persist or if there are any questions or concerns that arise at home. 07/28 20:15 Order name: IV Saline Lock; Complete Time: 21:11 pm1 07/28 21:45 Order name: PO challenge; Complete Time: 22:40 pm1 Administered Medications: 20:15 CANCELLED (Physician Discretion): Phenergan 25 mg IM once pm1 20:45 Drug: NS 0.9% 1000 ml Route: IV; Rate: 1000 ml; Site: left antecubital; 22:00 Follow up: Response: No adverse reaction; IV Status: Completed infusion; IV Intake: rr5 1000ml 20:45 Drug: Phenergan 12.5 mg Route: IVP; Site: left antecubital; 22:00 Follow up: Response: No adverse reaction; Marked relief of symptoms rr5 Disposition: 07/29 00:10 Co-signature as Attending Physician, Quoc Storey MD. 7 Disposition: 07/29/19 22:38 Discharged to Home. Impression: Vomiting. - Condition is Stable. - Discharge Instructions: Nausea and Vomiting, Adult. - Prescriptions for Phenergan 25 mg Rectal Suppository - insert 1 suppository by RECTAL route every 6 hours As needed; 12 suppository. promethazine 25 mg Oral Tablet - take 1 tablet by ORAL route every 6 hours As needed; 20 tablet. - Medication Reconciliation Form, Thank You Letter, Antibiotic Education, Prescription Opioid Use form. - Follow up: Emergency Department; When: As needed; Reason: Worsening of condition. Follow up: Private Physician; When: 2 - 3 days; Reason: Recheck today's complaints, Continuance of care, Re-evaluation by your physician. - Problem is new. - Symptoms have improved. Signatures: Filipe Dupont NP MANAGER [employer] pm1 Chris Garcia RN RN rr5 Evelyn Sheriff RN RN Quoc Storey MD MD 7 Corrections: (The following items were deleted from the chart) 07/28 20:15 20:14 Phenergan 25 mg IM once ordered. pm1 pm1 22:46 22:38 07/29/2019 22:38 Discharged to Home. Impression: Vomiting. Condition is Stable. rr5 Forms are Medication Reconciliation Form, Thank You Letter, Antibiotic Education, Prescription Opioid Use. Follow up: Emergency Department; When: As needed; Reason: Worsening of condition. Follow up: Private Physician; When: 2 - 3 days; Reason: Recheck today's complaints, Continuance of care, Re-evaluation by your physician. Problem is new. Symptoms have improved. pm1
--- NOTE | 2019-07-29 22:39 | ER ---
Nurse's Notes [facility] Name: Ron Felix Age: 29 yrs Sex: Male : 1990 Arrival Date: 07/29/2019 Time: 19:40 Bed 14 Private MD: Diagnosis: Vomiting Presentation: 07/28 19:45 Chief complaint: Patient states: continuously vomiting and abdominal pain started last rr5 Sunday. came here today morning given prescription but the vomiting did not stops. 19:45 Coronavirus screen: Proceed with normal triage. Ebola Screen: Patient negative for rr5 fever greater than or equal to 101.5 degrees Fahrenheit, and additional compatible Ebola Virus Disease symptoms Patient denies exposure to infectious person. Patient denies travel to an Ebola-affected area in the 21 days before illness onset. Initial Sepsis Screen: Does the patient meet any 2 criteria? No. Patient's initial sepsis screen is negative. Does the patient have a suspected source of infection? No. Patient's initial sepsis screen is negative. Risk Assessment: Do you want to hurt yourself or someone else? Patient reports no desire to harm self or others. Onset of symptoms was July 26, 2019. 19:45 Method Of Arrival: Ambulatory rr5 19:45 Acuity: JOSE 4 rr5 Triage Assessment: 19:53 General: Appears in no apparent distress. uncomfortable, Behavior is calm, cooperative, rr5 appropriate for age. Pain: Complains of pain in left upper quadrant and left lower quadrant Pain radiates to right lower quadrant Pain currently is 8 out of 10 on a pain scale. Quality of pain is described as burning, Pain began gradually, 2-3 days ago. Is intermittent. GI: Reports lower abdominal pain, upper abdominal pain, intolerance of fluids, intolerance of food, nausea, vomiting. Historical: - Allergies: 19:52 No Known Allergies; rr5 - Home Meds: 19:52 metformin 500 mg Oral Tb24 1 tab once daily [Active]; rr5 - PMHx: 19:52 Diabetes - NIDDM; PUD; Ulcers; rr5 - PSHx: 19:52 None; rr5 - Immunization history:: Adult Immunizations up to date. - Social history:: Smoking status: unknown Patient uses street drugs, marijuana, Patient/guardian denies using alcohol. Screenin:14 Abuse screen: Denies threats or abuse. Nutritional screening: No deficits noted. ah Tuberculosis screening: No symptoms or risk factors identified. Fall Risk None identified. Assessment: 20:15 General: Appears in no apparent distress. Behavior is calm, cooperative, appropriate ah for age. Pain: Denies pain. Neuro: Level of Consciousness is awake, alert, obeys commands, Oriented to person, place, time, situation. Cardiovascular: Capillary refill < 3 seconds Patient's skin is warm and dry. Respiratory: Airway is patent Respiratory effort is even, unlabored, Respiratory pattern is regular, symmetrical. GI: Abdomen is non-distended, Last BM was July 29, 2019. Bowel sounds present X 4 quads. Abd is soft and non tender X 4 quads. Reports nausea, vomiting, Patient currently denies abdominal pain. Derm: Skin is intact, is healthy with good turgor. 21:14 Reassessment: Patient and/or family updated on plan of care and expected duration. Pain ah level reassessed. Patient is alert, oriented x 3, equal unlabored respirations, skin warm/dry/pink. No adverse reaction to medictions. Pt resting at this time. No needs voiced. 22:30 Reassessment: Patient appears in no apparent distress at this time. Patient is alert, rr5 oriented x 3, equal unlabored respirations, skin warm/dry/pink. no vomiting after the PO challenge. Patient states feeling better. Patient states symptoms have improved. 22:45 Reassessment: Patient appears in no apparent distress at this time. Patient is alert, rr5 oriented x 3, equal unlabored respirations, skin warm/dry/pink. discharge instruction given and explained without complaints made. Vital Signs: 19:45 BP 148 / 96; Pulse 93; Resp 19; Temp 98.5; Pulse Ox 100% ; Weight 81.65 kg; Height 5 rr5 ft. 10 in. (177.80 cm); Pain 8/10; 22:00 BP 115 / 79; Pulse 82; Resp 19; Pulse Ox 100% ; rr5 22:40 BP 105 / 78; Pulse 75; Resp 16; Pulse Ox 99% on R/A; rr5 19:45 Body Mass Index 25.83 (81.65 kg, 177.80 cm) rr5 ED Course: 19:40 Patient arrived in ED. bp1 19:51 Triage completed. rr5 19:53 Arm band placed on right wrist. rr5 19:59 Filipe Dupont NP is PHCP. pm1 19:59 Quoc Storey MD is Attending Physician. pm1 20:16 Evelyn Sheriff, RN is Primary Nurse. 21:15 Patient has correct armband on for positive identification. Bed in low position. Call light in reach. Side rails up X 1. Pulse ox on. NIBP on. 21:15 Inserted saline lock: 20 gauge in left antecubital area, using aseptic technique. rr5 ,using aseptic technique. inserted by vincent endoscopy technician. 22:45 No provider procedures requiring assistance completed. IV discontinued, intact, rr5 bleeding controlled, No redness/swelling at site. Pressure dressing applied. Administered Medications: 20:15 CANCELLED (Physician Discretion): Phenergan 25 mg IM once pm1 20:45 Drug: NS 0.9% 1000 ml Route: IV; Rate: 1000 ml; Site: left antecubital; 22:00 Follow up: Response: No adverse reaction; IV Status: Completed infusion; IV Intake: rr5 1000ml 20:45 Drug: Phenergan 12.5 mg Route: IVP; Site: left antecubital; 22:00 Follow up: Response: No adverse reaction; Marked relief of symptoms rr5 Intake: 22:00 IV: 1000ml; Total: 1000ml. rr5 Outcome: 22:38 Discharge ordered by . pm1 22:45 Discharged to home ambulatory. rr5 22:45 Discharge instructions given to patient, Instructed on discharge instructions, follow up and referral plans. medication usage, Demonstrated understanding of instructions, follow-up care, medications, Prescriptions given X 2. 22:45 Condition: stable rr5 22:46 Patient left the ED. rr5 Signatures: Filipe Dupont NP CURATORIAL SPECIALIST pm1 Chris Garcia RN RN rr5 Evelyn Sheriff, RN RN Petty Benson bp1
[2019-07-29 22:57] VITALS: BP 148/96; TEMP 98.5; O2SAT 100
== END 2019-07-29 22:46 | disposition home or self-care (01) ==
LOC: ER 19:37
DX: R11.10 Vomiting, unspecified (principal); E11.9 Type 2 diabetes mellitus without complications
CPT/HCPCS: 96361; 96374; 99284; J2550; J7030

== ENCOUNTER 2020-01-15 20:03 | Emergency (ER) | payer SELFPAY ==
--- OUTSIDE RECORDS SUMMARY | 2020-01-15 20:05 | XMS REPORT | Continuity of Care Document ---
:1990 Author Organization [facility] t Address [address] [place] [address] [address] [place] [address] Care Team Providers Name Role Phone Luli [...] 2019-04-09 2019-04-09 Emergency Luli, TRAUMA [id number] 15:11:00 22:26:00 Formerly [facility] [id number] Results This patient has no known results.
[2020-01-15] MEDS ORDERED: HYDROCODONE/APAP 10/325 TAB ONE (21:24)
[2020-01-15] MEDS ORDERED: LIDOCAINE 1% MPF 5 ML VIAL ONE (21:24)
[2020-01-15] MEDS ORDERED: TETANUS & DIPHTHERIA TOX,ADULT 0.5 ML VIAL ONE (21:25)
--- NOTE | 2020-01-15 22:00 | EDPHYS ---
Physician Documentation [facility] Name: Ron Felix Age: 29 yrs Sex: Male : 1990 Arrival Date: 01/15/2020 Time: 20:05 Bed 19 Private MD: ED Physician Quoc Storey HPI: 01/15 00:38 This 29 yrs old Male presents to ER via Ambulatory with complaints of Abscess. pm1 00:39 The patient presents with an abscess of the right gluteus fara. Description: pm1 draining, raised. Onset: The symptoms/episode began/occurred 3 day(s) ago. Possible cause(s): unknown. Associated signs and symptoms: Pertinent negatives: fever. Modifying factors: the symptoms are aggravated by sitting, squeezing the lesion and expressing the contents, touching. Severity of symptoms: in the emergency department the symptoms are actually worse. The patient has experienced similar episodes in the past, a few times. The patient has not recently seen a physician, and does not have an established primary care provider. Historical: - Allergies: 01/14 20:14 No Known Allergies; jd3 - Home Meds: 20:14 metformin 500 mg Oral Tb24 1 tab once daily [Active]; jd3 - PMHx: 20:14 Diabetes - NIDDM; Ulcers; jd3 - PSHx: 20:14 None; jd3 - Immunization history:: Adult Immunizations up to date. - Social history:: Smoking status: Patient denies any tobacco usage or history of. ROS: 01/15 00:39 Constitutional: Negative for fever, chills, and weight loss, Cardiovascular: Negative pm1 for chest pain, palpitations, and edema, Respiratory: Negative for shortness of breath, cough, wheezing, and pleuritic chest pain, Back: Negative for injury and pain, MS/Extremity: Negative for injury and deformity. Skin: Positive for abscess, of the right gluteus fara, Negative for cellulitis. Exam: 00:39 Constitutional: This is a well developed, well nourished patient who is awake, alert, pm1 and in no acute distress. Head/Face: Normocephalic, atraumatic. 00:39 Cardiovascular: Exam negative for acute changes, Rate: normal, Rhythm: regular, Pulses: no pulse deficits are appreciated. 00:39 Respiratory: Exam negative for acute changes, respiratory distress, shortness of breath. 00:39 Skin: Appearance: normal except for affected area, abscess, of the right gluteus fara, with drainage, that is bloody, no surrounding cellulitis, cellulitis, is not appreciated. 00:39 Neuro: Exam negative for acute changes, Orientation: is normal, Mentation: is normal, Motor: is normal, moves all fours. Vital Signs: 01/14 20:14 BP 160 / 89; Pulse 97; Resp 17 S; Temp 97.6(TE); Pulse Ox 100% on R/A; Weight 88.45 kg jd3 (R); Height 5 ft. 10 in. (177.80 cm) (R); Pain 8/10; 21:00 BP 155 / 89; Pulse 89; Resp 16; Pulse Ox 98% ; rr5 22:08 BP 142 / 75; Pulse 85; Resp 16; Pulse Ox 99% ; rr5 20:14 Body Mass Index 27.98 (88.45 kg, 177.80 cm) jd3 Procedures: 01/15 00:39 I \T\ D: Incision and drainage was performed for an abscess of the right gluteus fara pm1 Prepped with Betadine, Anesthetized with 5 ml's 1% Lidocaine. Incised with #11 blade. Drained bloody fluid. Abscess cavity explored. Packed with iodoform gauze, the patient tolerated the procedure well, . MDM: 01/14 20:38 Patient medically screened. pm1 21:58 Data reviewed: vital signs. Data interpreted: Pulse oximetry: on room air is 100 %. pm1 Interpretation: normal. Counseling: I had a detailed discussion with the patient and/or guardian regarding: the historical points, exam findings, and any diagnostic results supporting the discharge/admit diagnosis, the need for outpatient follow up, a general surgeon, to return to the emergency department if symptoms worsen or persist or if there are any questions or concerns that arise at home. 01/14 20:54 Order name: Incision \T\ Drainage Setup; Complete Time: 21:09 pm1 Administered Medications: 21:30 Drug: Lidocaine (1 %) 5 ml {Note: given by maricarmen.} Volume: 5 ml; Route: Infiltration; rr5 22:10 Follow up: Response: No adverse reaction; Pain is decreased rr5 21:30 Drug: Tetanus-Diphtheria Toxoid Adult 0.5 ml {Traveling Accountant: [employer]. Exp: rr5 05/02/2021. Lot #: [id number]. } Route: IM; Site: left deltoid; 22:10 Follow up: Response: No adverse reaction rr5 21:37 Drug: [place]way 10 mg-325 mg 1 tabs {Note: rass 0.} Route: PO; rr5 22:10 Follow up: Response: No adverse reaction; Pain is decreased rr5 22:10 Drug: Bactrim (160 mg-800 mg (DS) 1 tablet Route: PO; rr5 22:12 Follow up: Response: Medication administered at discharge. rr5 Disposition: 01/15 04:39 Co-signature as Attending Physician, Quoc Storey MD. 7 Disposition: 01/15/20 21:59 Discharged to Home. Impression: Cutaneous abscess of buttock - right. - Condition is Stable. - Discharge Instructions: Skin Abscess, Incision and Drainage, Care After. - Prescriptions for Tylenol- Codeine #3 300-30 mg Oral Tablet - take 2 tablets by ORAL route every 6 hours As needed; 20 tablet. Bactrim DS 800- 160 mg Oral Tablet - take 1 tablet by ORAL route every 12 hours for 10 days; 20 tablet. - Medication Reconciliation Form, Thank You Letter, Antibiotic Education, Prescription Opioid Use form. - Follow up: Emergency Department; When: As needed; Reason: Worsening of condition. Follow up: Private Physician; When: 2 - 3 days; Reason: Recheck today's complaints, Continuance of care, Re-evaluation by your physician. - Problem is new. - Symptoms have improved. Signatures: Maricarmen Dupont, NANCY PRODUCT PICKER pm1 Jeremie Chavarria RN RN jd3 Chris Garcia RN RN rr5 Quoc Storey MD MD 7 Corrections: (The following items were deleted from the chart) 01/14 22:11 21:59 01/15/2020 21:59 Discharged to Home. Impression: Cutaneous abscess of buttock - rr5 right. Condition is Stable. Forms are Medication Reconciliation Form, Thank You Letter, Antibiotic Education, Prescription Opioid Use. Follow up: Emergency Department; When: As needed; Reason: Worsening of condition. Follow up: Private Physician; When: 2 - 3 days; Reason: Recheck today's complaints, Continuance of care, Re-evaluation by your physician. Problem is new. Symptoms have improved. pm1
--- NOTE | 2020-01-15 22:00 | ER ---
Nurse's Notes [facility] Name: Ron Felix Age: 29 yrs Sex: Male : 1990 Arrival Date: 01/15/2020 Time: 20:05 Bed 19 Private MD: Diagnosis: Cutaneous abscess of buttock-right Presentation: 01/14 20:11 Chief complaint: Patient states: "I have an abscess on my right butt cheek and i jd3 thought it was a pimple at first, but it just got bigger and worse.". Coronavirus screen: At this time, the client does not indicate any symptoms associated with coronavirus-19. Ebola Screen: Patient negative for fever greater than or equal to 101.5 degrees Fahrenheit, and additional compatible Ebola Virus Disease symptoms. Initial Sepsis Screen: Does the patient meet any 2 criteria? No. Patient's initial sepsis screen is negative. Does the patient have a suspected source of infection? No. Patient's initial sepsis screen is negative. Risk Assessment: Do you want to hurt yourself or someone else? Patient reports no desire to harm self or others. Onset of symptoms was January 13, 2020. 20:11 Acuity: JOSE 3 jd3 20:11 Method Of Arrival: Ambulatory jd3 Historical: - Allergies: 20:14 No Known Allergies; jd3 - Home Meds: 20:14 metformin 500 mg Oral Tb24 1 tab once daily [Active]; jd3 - PMHx: 20:14 Diabetes - NIDDM; Ulcers; jd3 - PSHx: 20:14 None; jd3 - Immunization history:: Adult Immunizations up to date. - Social history:: Smoking status: Patient denies any tobacco usage or history of. Screenin:35 Abuse screen: Denies threats or abuse. Denies injuries from another. Nutritional rr5 screening: No deficits noted. Tuberculosis screening: No symptoms or risk factors identified. Fall Risk None identified. Total Bass Fall Scale indicates No Risk (0-24 pts). Assessment: 20:20 General: Appears in no apparent distress. uncomfortable, Behavior is calm, cooperative, rr5 appropriate for age. Pain: Complains of pain in right gluteus fara Pain Quality of pain is described as aching, Pain began gradually, Is intermittent. Neuro: Level of Consciousness is awake, alert, obeys commands, Oriented to person, place, time, situation. Cardiovascular: Capillary refill < 3 seconds Patient's skin is warm and dry. Respiratory: Airway is patent Respiratory effort is even, unlabored, Respiratory pattern is regular, symmetrical. GI: No signs and/or symptoms were reported involving the gastrointestinal system. : No signs and/or symptoms were reported regarding the genitourinary system. EENT: No signs and/or symptoms were reported regarding the EENT system. Derm: Skin temperature is warm Wound noted right gluteus fara Abscess located on right gluteus fara is dime sized, is hot to touch, is raised. 20:20 Musculoskeletal: Circulation, motion, and sensation intact. Capillary refill < 3 rr5 seconds. 21:00 Reassessment: Patient appears in no apparent distress at this time. Patient is alert, rr5 oriented x 3, equal unlabored respirations, skin warm/dry/pink. 22:09 Reassessment: Patient appears in no apparent distress at this time. Patient is alert, rr5 oriented x 3, equal unlabored respirations, skin warm/dry/pink. discharge instruction given and explained without complaints made Patient states symptoms have improved. Vital Signs: 20:14 BP 160 / 89; Pulse 97; Resp 17 S; Temp 97.6(TE); Pulse Ox 100% on R/A; Weight 88.45 kg jd3 (R); Height 5 ft. 10 in. (177.80 cm) (R); Pain 8/10; 21:00 BP 155 / 89; Pulse 89; Resp 16; Pulse Ox 98% ; rr5 22:08 BP 142 / 75; Pulse 85; Resp 16; Pulse Ox 99% ; rr5 20:14 Body Mass Index 27.98 (88.45 kg, 177.80 cm) jd3 ED Course: 20:05 Patient arrived in ED. mr 20:13 Triage completed. jd3 20:16 Arm band placed on. jd3 20:22 Chris Garcia RN is Primary Nurse. rr5 20:27 Maricarmen Dupont NP is PHCP. pm1 20:27 Quoc Storey MD is Attending Physician. pm1 20:30 Patient has correct armband on for positive identification. Bed in low position. Call rr5 light in reach. 21:40 Assist provider with I \\T\\ D: of an abscess on right perianal. rr5 21:40 Patient did not have IV access during this emergency room visit. rr5 Administered Medications: 21:30 Drug: Lidocaine (1 %) 5 ml {Note: given by maricarmen.} Volume: 5 ml; Route: Infiltration; rr5 22:10 Follow up: Response: No adverse reaction; Pain is decreased rr5 21:30 Drug: Tetanus-Diphtheria Toxoid Adult 0.5 ml {Scroll Assembler: [employer]. Exp: rr5 05/02/2021. Lot #: [id number]. } Route: IM; Site: left deltoid; 22:10 Follow up: Response: No adverse reaction rr5 21:37 Drug: Bryant 10 mg-325 mg 1 tabs {Note: rass 0.} Route: PO; rr5 22:10 Follow up: Response: No adverse reaction; Pain is decreased rr5 22:10 Drug: Bactrim (160 mg-800 mg (DS) 1 tablet Route: PO; rr5 22:12 Follow up: Response: Medication administered at discharge. rr5 Outcome: 21:59 Discharge ordered by . pm1 22:10 Discharged to home ambulatory. rr5 22:10 Condition: stable 22:10 Discharge instructions given to patient, Instructed on discharge instructions, follow up and referral plans. medication usage, Demonstrated understanding of instructions, follow-up care, medications, Prescriptions given X 2. 22:11 Patient left the ED. rr5 Signatures: CookLulu mc mr DupontMaricarmen, NANCY BACTERIOLOGY TECHNICIAN pm1 Jeremie Chavarria RN RN jd3 Roque, Raymond, RN RN rr5
[2020-01-15] MEDS ORDERED: SMZ./TMP. 800/160 MG TABLET ONE (22:17)
[2020-01-16 01:02] VITALS: TEMP 97.6
[2020-01-16 01:06] VITALS: BP 142/75; O2SAT 99
== END 2020-01-15 22:11 | disposition home or self-care (01) ==
LOC: ER 20:03
PROC: 0J990ZZ Drainage of Buttock Subcutaneous Tissue and Fascia, Open Approach (ICD-10-PCS; principal; 2020-01-15)
DX: L02.31 Cutaneous abscess of buttock (principal); E11.9 Type 2 diabetes mellitus without complications; Z23 Encounter for immunization
CPT/HCPCS: 90471; 90714; 99283

== ENCOUNTER 2021-07-05 18:27 | Emergency (ER) | payer SELFPAY ==
--- OUTSIDE RECORDS SUMMARY | 2021-07-05 18:30 | XMS REPORT | Continuity of Care Document ---
:1990 Author Organization [facility] t Address [address] [place] [address] Care Team Providers Name Role Phone PCP, DOES NOT HAVE A Primary Care Physician Unavailable Luli MASSEY, A Attending Clinician Jennifer BLACK Attending Clinician Unavailable LULI, Jennifer Admitting Clinician Unavailable Problems This patient has no known problems. Allergies, Adverse Reactions, Alerts Allergy Allergy Status Severity Reaction(s) Onset Inactive Treating Comm ents Source Name Type Date Date Clinician NO KNOWN Drug [facility] Medications This patient has no known medications. Procedures This patient has no known procedures. Encounters Start End Encounter Admission Attending Care Care Encounter Source Date/Time Date/Time Type Type Clinicians Facility Department ID 2019-04-09 2019-04-09 Emergency Behnelson, TRAUMA [id number] 15:11:00 22:26:00 Goldy A [facility] [id number] 2019-04-09 2019-04-09 Emergency X JAJAELIDIA, [facility] ERT [id number] 15:11[facility]00 [facility] Test Description Test Time Test Comments Results Result [facility] e Comments CT Abdomen and 2018-06-29 Patient: JAILENE Pelvis w/ Contrast 02:28:18 CANDACE DESAI Date/Time06/29/2018 02:19 CDTReason for ExamAbdominal painReportAFTER HOURS SERVICE ON: 06/29/2018 2:26 AMCT Scan of the Abdomen and Pelvis With ContrastLocation Code [id number]: Abdominal painTechnique: Axial and reconstructed coronal scans [...]
--- NOTE | 2021-07-05 21:39 | ER ---
Nurse's Notes [facility] Name: Ron eFlix Age: 30 yrs Sex: Male : 1990 Arrival Date: 07/05/2021 Time: 18:29 Bed DIS2 Private MD: Diagnosis: Acute serous otitis media, right ear Presentation: 07/05 19:02 Chief complaint: Patient states: Right ear pain, right upper tooth pain and bilateral ww tooth pain when taking a deep breath. Coronavirus screen: Client denies travel out of the [place] in the last 14 days. Ebola Screen: Patient denies travel to an Ebola-affected area in the 21 days before illness onset. Initial Sepsis Screen: Does the patient meet any 2 criteria? No. Patient's initial sepsis screen is negative. Does the patient have a suspected source of infection? No. Patient's initial sepsis screen is negative. Risk Assessment: Do you want to hurt yourself or someone else? Patient reports no desire to harm self or others. Onset of symptoms is unknown. 19:02 Method Of Arrival: Ambulatory ww 19:02 Acuity: JOSE 4 ww Triage Assessment: 19:03 EENT: cracked bottom molar. ww Historical: - Allergies: 19:03 No Known Allergies; ww - PMHx: 19:03 Diabetes - NIDDM; Ulcers; ww - PSHx: 19:03 left elbow; ww - Immunization history:: Adult Immunizations not up to date. - Social history:: Smoking status: Patient reports the use of cigarette tobacco products. Screenin:48 Abuse screen: Denies threats or abuse. Nutritional screening: No deficits noted. bb Tuberculosis screening: No symptoms or risk factors identified. Fall Risk None identified. Assessment: 21:48 General: Appears in no apparent distress. uncomfortable, Behavior is calm, cooperative. bb Pain: Complains of pain in right ear. Neuro: Level of Consciousness is awake, alert, obeys commands, Oriented to person, place, time, situation. Cardiovascular: Capillary refill < 3 seconds Patient's skin is warm and dry. Respiratory: Respiratory effort is even, unlabored, Respiratory pattern is regular. GI: No signs and/or symptoms were reported involving the gastrointestinal system. EENT: Reports pain in right ear. Derm: Skin is pink, warm \T\ dry. Musculoskeletal: Circulation, motion, and sensation intact. pt seen by this RN at discharge pt verbalized understanding of and agrees to plan of care discharge instructions given pt ambulated with steady gait to exit. Vital Signs: 19:02 BP 154 / 113; Pulse 93; Resp 18; Temp 97.9; Pulse Ox 100% ; Weight 81.65 kg; Height 5 ww ft. 10 in. (177.80 cm); Pain 8/10; 19:02 Body Mass Index 25.83 (81.65 kg, 177.80 cm) ww ED Course: 18:29 Patient arrived in ED. as 19:03 Triage completed. ww 19:03 Arm band placed on. ww 19:35 Deuce James PA is PHCP. [facility] 19:35 Quoc Storey MD is Attending Physician. [facility] 21:31 Desire Mcdaniels, RN is Primary Nurse. bb 21:48 Patient has correct armband on for positive identification. bb 21:48 No provider procedures requiring assistance completed. Patient did not have IV access bb during this emergency room visit. Administered Medications: No medications were administered Outcome: 21:38 Discharge ordered by . [facility] 21:48 Discharged to home ambulatory. bb 21:48 Condition: stable 21:48 Discharge instructions given to patient, Instructed on discharge instructions, follow up and referral plans. medication usage, Demonstrated understanding of instructions, follow-up care, medications, Prescriptions given X 1. 21:50 Patient left the ED. bb Signatures: Deuce James PA PA jmm Martinez, Amelia as Ballard, Brenda, DEVIN RN Velia Guerrero RN RN ww Corrections: (The following items were deleted from the chart) 19:04 19:03 PSHx: None; ww ww
--- NOTE | 2021-07-05 21:39 | EDPHYS ---
Physician Documentation [facility] Name: Ron Felix Age: 30 yrs Sex: Male : 1990 Arrival Date: 07/05/2021 Time: 18:29 Bed DIS2 Private MD: ED Physician Quoc Storey HPI: 07/05 20:14 This 30 yrs old Male presents to ER via Ambulatory with complaints of Ear Pain.jmm 20:14 The patient presents with pain. Onset: The symptoms/episode began/occurred gradually. jmm Modifying factors: The symptoms are alleviated by nothing, the symptoms are aggravated by nothing. Associated signs and symptoms: Pertinent positives:. This is a 30-year-old male with history of diabetes mellitus the presents emerged part with complaints of right ear pain which has been ongoing for approximately a week. Patient also complains of cough and congestion.. Historical: - Allergies: 19:03 No Known Allergies; ww - PMHx: 19:03 Diabetes - NIDDM; Ulcers; ww - PSHx: 19:03 left elbow; ww - Immunization history:: Adult Immunizations not up to date. - Social history:: Smoking status: Patient reports the use of cigarette tobacco products. ROS: 20:14 Constitutional: Positive for body aches, chills. jmm 20:14 ENT: Positive for ear pain. 20:14 All other systems are negative. Exam: 20:14 Constitutional: This is a well developed, well nourished patient who is awake, alert, jmm and in no acute distress. Head/Face: atraumatic. Eyes: EOMI, no conjunctival erythema appreciated 20:14 Neck: Trachea midline, Supple Chest/axilla: Normal chest wall appearance and motion. Cardiovascular: Regular rate and rhythm. No edema appreciated Respiratory: Normal respirations, no respiratory distress appreciated Abdomen/GI: Non distended, soft Back: Normal ROM Skin: General appearance color normal MS/ Extremity: Moves all extremities, no obvious deformities appreciated, no edema noted to the lower extremities Neuro: Awake and alert Psych: Behavior is normal, Mood is normal, Patient is cooperative and pleasant 20:14 ENT: TM's: erythema, that is moderate, on the right. 20:14 ENT: TM's: erythema. Vital Signs: 19:02 BP 154 / 113; Pulse 93; Resp 18; Temp 97.9; Pulse Ox 100% ; Weight 81.65 kg; Height 5 ww ft. 10 in. (177.80 cm); Pain 8/10; 19:02 Body Mass Index 25.83 (81.65 kg, 177.80 cm) ww MDM: 20:14 Patient medically screened. [facility] 21:36 Data reviewed: vital signs, nurses notes. Counseling: I had a detailed discussion with [facility] the patient and/or guardian regarding: the historical points, exam findings, and any diagnostic results supporting the discharge/admit diagnosis, the need for outpatient follow up, to return to the emergency department if symptoms worsen or persist or if there are any questions or concerns that arise at home. ED course: Patient is alert and non toxic in appearance in the ED. No signs of mastoiditis, sepsis. Administered Medications: No medications were administered Disposition: 07/06 08:18 Co-signature as Attending Physician, Quoc Storey MD. [email or web address] Disposition Summary: 07/05/21 21:38 Discharge Ordered Location: Home [facility] Condition: Stable [facility] Diagnosis - Acute serous otitis media, right ear [facility] Followup: [facility] - With: Private Physician - When: 2 - 3 days - Reason: Recheck today's complaints, Continuance of care, Re-evaluation by your physician Discharge Instructions: - Discharge Summary Sheet [facility] - Otitis Media, Adult [facility] Forms: - Medication Reconciliation Form [facility] - Thank You Letter [facility] - Antibiotic Education [facility] - Prescription Opioid Use [facility] Prescriptions: - cefdinir 300 mg Oral capsule - take 1 capsule by ORAL route every 12 hours for 10 days; 20 capsule; Refills: [facility] 0, Product Selection Permitted Signatures: Deuce James PA PA jmm Holmes, Maurice, MD MD [email or web address] Velia Wagoner, RN RN ww Corrections: (The following items were deleted from the chart) 07/05 19:04 19:03 PSHx: None; ww ww
[2021-07-05 22:27] VITALS: BP 154/113; TEMP 97.9; O2SAT 100
== END 2021-07-05 21:50 | disposition home or self-care (01) ==
LOC: ER 18:27
DX: H65.01 Acute serous otitis media, right ear (principal); E11.9 Type 2 diabetes mellitus without complications; Z72.0 Tobacco use
CPT/HCPCS: 99282

== ENCOUNTER 2024-02-14 17:47 | Emergency (ER) | payer SELFPAY ==
--- OUTSIDE RECORDS SUMMARY | 2024-02-14 17:50 | XMS REPORT | Continuity of Care Document ---
Author Name Unknown Address [address] [facility] [address] [place] [address] [facility] thconnect Address [address] [facility] [address] [place] [address] Care Team Providers Care Perfusionist Name Role Phone PCP, PATIENT DOES NOT HAVE A Primary Care Physic cici Unavailable GOLDY ROCKWELL Attending Clinician Goldy Bentley MD Attending Clinician [phone] GOLDY ROCKWELL Admitting Clinician Unavailjerry e Allergies, Adverse Reactions, Alerts Allergy Name Allergy Type Status Severity Reaction(s) Onset Date Inactive Date Treating Clinician Comments Source NO KNOWN ALLERGIE S Drug Class Active [facility] Encounters Start Date/Time End Date/Time Encounter Type Admission Type Attending Clinicians Care Facility Care Department Encounter ID Source 2019-04-09 15:11:00 2019-04-09 22:26:00 Emergency X GOLDY ROCKWELL [facility] ERT [id number] [facility] 2019-04-09 15:11:00 2019-04-09 22:26:00 Emergency Goldy Rock[facility] [id number] Results Test Description Test Time Test Comments Results Resul t Comments Source CT Abdomen and Pelvis w/ Contrast 2018-06-29 02:28:18 Patient: CANDACE DENT Date/Time06/29/2018 02:19 CDTReason for ExamAbdominal painReportAFTER HOURS SERVICE ON: 06/29/2018 2:26 [facility] Scan of the Abdomen and Pelvis With ContrastLocation Code [id number]: Abdominal painTechnique: Axial and reconstructed coronal scans were performed on a helical scanner post IV contrast.One or more of the following dose reduction techniques were used: Automated exposure control, adjustment of the mA and/or kV according to patient size, and/or utilization of iterative reconstruction technique.Findings:Li windy is hypodense and enlarged measuring 18.7 cm, [...]
[2024-02-14 18:58] LABS: SARS-CoV-2 Antigen CONTROL BLUE LINE VIS/BG OK; SARS-CoV-2 Antigen Rapid Res Negative (Negative)
--- NOTE | 2024-02-14 19:14 | RAD REPORT ---
EXAMINATION: TWO VIEW CHEST XR CLINICAL INDICATION: Fever;Cough TECHNIQUE: 2 views of the chest was performed. COMPARISON: 07/29/2012 FINDINGS: The lungs are well inflated and clear. The heart is normal in size. No displaced fractures evident. S mall hiatal hernia. IMPRESSION: No acute or significant abnormalities.
[2024-02-14] MEDS ORDERED: IBUPROFEN 400 MG TAB ONE (20:56)
[2024-02-14] MEDS ORDERED: OSELTAMIVIR 75 MG CAP PO ONE (20:56)
[2024-02-14] MEDS ORDERED: BENZONATATE 100 MG CAP PO ONE (20:56)
--- NOTE | 2024-02-14 21:17 | EDPHYS ---
Physician Documentation [facility] Name: Ron Felix Age: 33 yrs Sex: Male : 1990 Arrival Date: 02/14/2024 Time: 17:47 Bed 17 Private MD: ED Physician Mya Davila HPI: 02/13 18:25 This 33 yrs old Male presents to ER via Ambulatory with complaints of cp Shortness Of Breath, Flu Symptoms. 18:25 The patient has shortness of breath with light activity. cp 18:25 Onset: The symptoms/episode began/occurred yesterday. Associated signs and symptoms: cp Pertinent positives: non-productive cough, chills, sore throat, body aches, Pertinent negatives: vomiting, diarrhea. Severity of symptoms: in the emergency department the symptoms are unchanged despite home interventions. Historical: - Allergies: 18:18 No Known Allergies; cm10 - PMHx: 18:18 Diabetes - NIDDM; PUD; Ulcers; cm10 - PSHx: 18:18 left elbow; cm10 - Immunization history:: Adult Immunizations up to date. - Infectious Disease History:: Denies. - Social history:: Smoking status: Patient denies any tobacco usage or history of. ROS: 18:30 Constitutional: Positive for body aches, chills, Negative for fever, cp 18:30 Eyes: Negative for injury, pain, redness, and discharge, cp 18:30 ENT: Positive for sore throat, 18:30 Respiratory: Positive for cough, shortness of breath, 18:30 Abdomen/GI: Negative for vomiting, diarrhea, 18:30 Neuro: Negative for altered mental status, dizziness, headache, weakness, 18:30 All other systems are negative, Exam: 18:33 Constitutional: The patient appears in no acute distress, non-diaphoretic, non-toxic, cp well developed, well nourished, 18:33 Head/Face: Normocephalic, atraumatic. cp 18:33 Eyes: Periorbital structures: appear normal, Conjunctiva: normal, no exudate, no injection, Sclera: no appreciated abnormality, Lids and lashes: appear normal, bilaterally, 18:33 ENT: External ear(s): are unremarkable, Ear canal(s): are normal, clear, TM's: dullness, bilaterally, Nose: is normal, Mouth: Lips: moist, Oral mucosa: moist, Posterior pharynx: Airway: no evidence of obstruction, patent, 18:33 Neck: ROM/movement: is normal, is supple, without pain, no range of motions limitations, no meningismus, 18:33 Chest/axilla: Inspection: normal, 18:33 Cardiovascular: Rate: tachycardic, Rhythm: regular, 18:33 Respiratory: the patient does not display signs of respiratory distress, Respirations: labored breathing, is not present, intercostal retractions, are absent, Breath sounds: decreased breath sounds, are not appreciated, + upper airway congestion. wheezing: is not appreciated, 18:33 Abdomen/GI: Inspection: abdomen appears normal, Palpation: abdomen is soft and non-tender, in all quadrants, Vital Signs: 18:18 BP 130 / 94; Pulse 106; Resp 18; Temp 98.6(TE); Pulse Ox 100% ; Weight 86.18 kg; Height cm10 5 ft. 11 in. ; Pain 9/10; 20:00 BP 150 / 95; Pulse 101; Resp 17; Pulse Ox 98% on R/A; me1 21:00 BP 138 / 78; Pulse 102; Resp 17; Temp 98.4; Pulse Ox 98% ; me1 18:18 Body Mass Index 26.50 (86.18 kg, 180.34 cm) cm10 18:18 Pain Scale: Adult cm10 MDM: 18:24 Medical Screening Exam initiated cp 21:15 Data reviewed: vital signs, nurses notes, lab test result(s), radiologic studies, plain cp films, and as a result, I will discharge patient. 21:15 Differential diagnosis: Bronchitis pneumonia, Sepsis. I considered the following cp discharge prescriptions or medication management in the emergency department Medications were administered in the Emergency Department. See MAR. Counseling: I had a detailed discussion with the patient and/or guardian regarding the historical points, exam findings, and any diagnostic results supporting the discharge/admit diagnosis, lab results, radiology results, to return to the emergency department if symptoms worsen or persist or if there are any questions or concerns that arise at home. Response to treatment: the patient's symptoms have mildly improved after treatment, and as a result, I will discharge patient. 02/13 18:20 Order name: Flu; Complete Time: 20:50 cm10 02/13 20:50 Interpretation: Normal except: FLUA FLU A ----- POSITIVE for FLU A protein antigen. 02/13 18:20 Order name: SARS RAPID; Complete Time: 20:50 cm10 02/13 18:20 Order name: Strep cm10 02/13 18:24 Order name: RSV; Complete Time: 20:50 02/13 18:24 Order name: XRAY Chest Pa And Lat (2 Views); Complete Time: 20:50 02/13 20:50 Interpretation: Report reviewed. cp Administered Medications: 21:00 Drug: Oseltamivir PO 75 mg PO once Route: PO; me1 21:24 Follow up: Response: No adverse reaction me1 21:00 Drug: Ibuprofen PO 800 mg PO once Route: PO; me1 21:24 Follow up: Response: No adverse reaction; Pain is decreased me1 21:00 Drug: Tessalon Perle PO 200 mg PO once Route: PO; me1 21:25 Follow up: Response: No adverse reaction me1 Disposition Summary: 02/14/24 21:16 Discharge Ordered Notes: Location: Home cp Problem: new cp Symptoms: have improved cp Condition: Stable cp Diagnosis - Influenza due to identified novel influenza A virus with other respiratory cp manifestations Followup: cp - With: Private Physician - When: 2 - 3 days - Reason: Worsening of condition Discharge Instructions: - Discharge Summary Sheet cp - Influenza, Adult cp Forms: - Medication Reconciliation Form cp - Antibiotic Education cp - Prescription Opioid Use cp - Patient Portal Instructions cp - Leadership Thank You Letter cp Prescriptions: - Bromfed DM 2-30-10 mg/5 mL Oral syrup - administer 10 milliliter ORAL route every 6-8 hours as needed for cold cp symptoms; 240 milliliter; Refills: 0, Product Selection Permitted - Ibuprofen 800 mg Oral Tablet - take 1 tablet ORAL route every 8 hours As needed take with food; 30 tablet; cp Refills: 0, Product Selection Permitted - Tamiflu 75 mg Oral Capsule - take 1 capsule ORAL route every 12 hours for 5 days; 10 capsule; Refills: 0, cp Product Selection Permitted Addendum: 02/15/2024 23:50 Co-signature as Attending Physician, Mya Davila MD I reviewed the patient's care s d2 provided by the Advanced Practice Provider and agree with the diagnosis and treatment plan. Signatures: Dispatcher [employer] Gilbert Menjivar PA PA cp Dunlop, Stephanie, MD MD sd2 Emily Jo RN RN cm10 Zulema Rosa RN RN me1
--- NOTE | 2024-02-14 21:17 | ER ---
Nurse's Notes [facility] Name: Ron Felix Age: 33 yrs Sex: Male : 1990 Arrival Date: 02/14/2024 Time: 17:47 Bed 17 Private MD: Diagnosis: Influenza due to identified novel influenza A virus with other respiratory manifestations Presentation: 02/13 18:17 Chief complaint: Patient states: body aches, shortness of breath, chills onset cm10 yesterday. Coronavirus screen: Client denies travel out of the [place] in the last 14 days. Ebola Screen: Patient denies travel to an Ebola-affected area in the 21 days before illness onset. No symptoms or risks identified at this time. Initial Sepsis Screen: Does the patient meet any 2 criteria?. Onset of symptoms was February 13, 2024. 18:17 Method Of Arrival: Ambulatory cm10 18:19 Initial Sepsis Screen: Does the patient meet any 2 criteria? HR > 90 bpm. Does the cm10 patient have a suspected source of infection? No. Patient's initial sepsis screen is negative. Risk Assessment: Do you want to hurt yourself or someone else? Patient reports no desire to harm self or others. 18:19 Acuity: JOSE 4 cm10 Triage Assessment: 18:19 General: Appears in no apparent distress. uncomfortable, Behavior is calm, cooperative. cm10 Neuro: No deficits noted. Level of Consciousness is awake, alert, obeys commands, Oriented to person, place, time, situation, Appropriate for age. Respiratory: No deficits noted. Airway is patent Respiratory effort is even, unlabored, Respiratory pattern is regular, symmetrical. 21:20 Respiratory: Onset: The symptoms/episode began/occurred yesterday, the patient has mild me1 shortness of breath. Historical: - Allergies: 18:18 No Known Allergies; cm10 - PMHx: 18:18 Diabetes - NIDDM; PUD; Ulcers; cm10 - PSHx: 18:18 left elbow; cm10 - Immunization history:: Adult Immunizations up to date. - Infectious Disease History:: Denies. - Social history:: Smoking status: Patient denies any tobacco usage or history of. Screenin:35 [facility] ED Fall Risk Assessment (Adult) History of falling in the last 3 months, me1 including since admission No falls in past 3 months (0 pts) Confusion or Disorientation No (0 pts) Intoxicated or Sedated No (0 pts) Impaired Gait No (0 pts) Mobility Assist Device Used No (0 pt) Altered Elimination No (0 pt) Score/Fall Risk Level 0 - 2 = Low Risk Maintained a safe environment, Provided non-skid footwear, Hourly rounding (assess needs \T\ fall precautionary measures) done. Abuse screen: Denies threats or abuse. Nutritional screening: No deficits noted. Tuberculosis screening: No symptoms or risk factors identified. Assessment: 19:35 General: Appears ill, well groomed, well developed, well nourished, Behavior is calm, me1 cooperative, appropriate for age, Reports c/o SOB, fever, chills, body aches, cough and congestion that started yesterday. Pain: Denies pain. Neuro: Level of Consciousness is awake, alert, obeys commands, Oriented to person, place, time, situation, Appropriate for age. Cardiovascular: Patient's skin is warm and dry. Rhythm is regular. Respiratory: Reports shortness of breath cough that is since yesterday Airway is patent Trachea midline Respiratory effort is even, unlabored, Respiratory pattern is regular, symmetrical, Breath sounds are clear bilaterally. GI: Reports upper abdominal pain, cramping, nausea, since yesterday. : No signs and/or symptoms were reported regarding the genitourinary system. EENT: Reports nasal congestion. Derm: Skin is intact, is healthy with good turgor, Skin is pink, warm \T\ dry. Musculoskeletal: No signs and/or symptoms reported regarding the musculoskeletal system. Circulation, motion, and sensation intact. Range of motion: intact in all extremities. Vital Signs: 18:18 BP 130 / 94; Pulse 106; Resp 18; Temp 98.6(TE); Pulse Ox 100% ; Weight 86.18 kg; Height cm10 5 ft. 11 in. ; Pain 9/10; 20:00 BP 150 / 95; Pulse 101; Resp 17; Pulse Ox 98% on R/A; me1 21:00 BP 138 / 78; Pulse 102; Resp 17; Temp 98.4; Pulse Ox 98% ; me1 18:18 Body Mass Index 26.50 (86.18 kg, 180.34 cm) cm10 18:18 Pain Scale: Adult cm10 ED Course: 17:49 Patient arrived in ED. mr 18:09 Gilbert Dalton PA is PHCP. cp 18:09 Mya Davila MD is Attending Physician. cp 18:18 Arm band placed on left wrist. Patient placed in waiting room. cm10 18:19 Triage completed. cm10 18:27 RSV Sent. cm10 18:27 Strep Sent. cm10 18:27 SARS RAPID Sent. cm10 18:27 Flu Sent. cm10 18:28 COVID swab sent to lab. Flu and/or RSV swab sent to lab. Strep swab sent to lab. cm10 19:11 XRAY Chest Pa And Lat (2 Views) In Process Unspecified. EDMS 19:35 Patient has correct armband on for positive identification. Bed in low position. Call me1 light in reach. Side rails up X2. Provided Education on: POC. Verbalized understanding.. Client placed on continuous cardiac and pulse oximetry monitoring. NIBP monitoring applied. Pulse ox on. NIBP on. 19:35 No provider procedures requiring assistance completed. Patient did not have IV access me1 during this emergency room visit. 19:43 Zulema Rosa, RN is Primary Nurse. me1 Administered Medications: 21:00 Drug: Oseltamivir PO 75 mg PO once Route: PO; me1 21:24 Follow up: Response: No adverse reaction me1 21:00 Drug: Ibuprofen PO 800 mg PO once Route: PO; me1 21:24 Follow up: Response: No adverse reaction; Pain is decreased me1 21:00 Drug: Tessalon Perle PO 200 mg PO once Route: PO; me1 21:25 Follow up: Response: No adverse reaction me1 Medication: 19:35 VIS not applicable for this client. me1 Outcome: 21:16 Discharge ordered by . cp 21:23 Discharged to home ambulatory, me1 21:23 Condition: stable 21:23 Discharge instructions given to patient, Instructed on discharge instructions, follow up and referral plans. medication usage, Demonstrated understanding of instructions, follow-up care, medications, Prescriptions given X 3, 21:26 Patient left the ED. me1 Signatures: Dispatcher [employer] EDCO Lulu Cook, Reg Reg mr Gilbert Dalton PA PA cp Martinez, Clarissa, DEVIN RN 10 Zulema Rosa, RN RN me1
[2024-02-14 21:31] VITALS: O2SAT 98
[2024-02-14 21:32] VITALS: BP 138/78; TEMP 98.4
== END 2024-02-14 21:26 | disposition home or self-care (01) ==
LOC: ER 17:47
DX: J10.1 Influenza due to other identified influenza virus with other respiratory manifestations (principal); Z11.52 Encounter for screening for COVID-19
CPT/HCPCS: 36415; 71046; 87070; 87081; 87804; 87807; 87811; 99284